=== PATIENT | male | born 1955 | race Caucasian/White ===

== ENCOUNTER 2023-06-18 05:20 | Inpatient (IN) | payer MEDICARE, BC ==
[2023-06-12 15:50] LABS: BILIRUBIN,URINE NEGATIVE (Neg); CLARITY,URINE CLEAR (Clear); COLOR,URINE YELLOW (Yellow); GLUCOSE, URINE NEGATIVE (Neg); KETONES,URINE NEGATIVE (Neg); LEUKOCYTE ESTERASE ,URINE NEGATIVE (Neg); NITRITES, URINE NEGATIVE (Neg); OCCULT BLOOD,URINE NEGATIVE (Neg); PROTEIN,URINE NEGATIVE (Neg); UROBILINOGEN,URINE 0.2 E.U/dL (0.2-1.0)
[2023-06-12 15:51] LABS: UA COLLECTION TYPE CLN CATCH MIDSTREAM
[2023-06-12 15:54] LABS: EOSINOPHILS # (AUTO) 0.1 X10'3 (0-0.9); LYMPHOCYTES # (AUTO) 0.1 X10'3 (1.1-4.8); NEUTROPHILS # (AUTO) 2.9 X10'3 (1.8-7.7); PRE OP HEMATOCRIT 26.3 % (42.0-52.0)
[2023-06-12 15:55] LABS: BASOPHILS % (AUTO) 0.4 % (0-1); EOSINOPHILS % (AUTO) 2.8 % (0-6); LYMPHOCYTES % (AUTO) 3.4 % (21-51); MEAN CORPUSCULAR HEMOGLOBIN 32.7 PG (27.0-31.0); MEAN CORPUSCULAR HGB CONC 29.5 g/dL (33.0-36.5); MEAN CORPUSCULAR VOLUME 110.7 FL (78-98); MEAN PLATELET VOLUME 8.5 FL (7.4-10.4); MONOCYTES # (AUTO) 0.3 X10'3 (0-0.9); MONOCYTES % (AUTO) 9.4 % (2-12); PRE OP PLATELET COUNT 188 X10'3 (140-440); PRE OP WHITE BLOOD COUNT 3.4 10'3 (4.8-10.8); RED BLOOD COUNT 2.38 X10'6 (4.70-6.10); RED CELL DISTRIBUTION WIDTH 16.5 % (11.5-14.5)
[2023-06-12 15:57] LABS: PRE OP PROTIME 10.3 SECONDS (9.0-12.0)
[2023-06-12 15:58] LABS: PRE OP HEMOGLOBIN 7.8 g/dL (14.0-17.9)
[2023-06-12 16:00] LABS: ALBUMIN 2.6 G/DL (3.4-5.0); ALBUMIN/GLOBULIN RATIO 1.2 (1.1-1.5); ALKALINE PHOSPHATASE 54 IU/L (46-116); BLOOD UREA NITROGEN 11 MG/DL (7-18); BUN/CREATININE RATIO 8.4 (10.0-20.0); CHLORIDE 112 MMOL/L (99-107); CREATININE 1.31 MG/DL (0.60-1.10); PRE OP ALT 26 U/L (30-65); PRE OP ANION GAP 6 (8-16); PRE OP AST 21 U/L (10-37); PRE OP BILIRUB, TOTAL 0.3 MG/DL (0.0-1.0); PRE OP GLUCOSE 94 MG/DL (70-104); PRE OP SODIUM 141 MMOL/L (135-145); TOTAL CARBON DIOXIDE 23.4 MMOL/L (24-32); TOTAL PROTEIN 4.7 G/DL (6.4-8.2); eGFR 54 ML/MIN
[2023-06-12 16:23] LABS: HYPOCHROMASIA 1+; PLATELET ESTIMATE NORMAL; POLYCHROMASIA 1+
[2023-06-12 16:24] LABS: ANISOCYTOSIS 1+
[2023-06-12 16:25] LABS: SCHISTOCYTES FEW
[2023-06-12 16:26] LABS: TEAR DROP CELLS 2+
[~2023-06-18] VITALS: Ht 177.8 cm; Wt 73.8 kg
[2023-06-18] VITALS (17 sets, daily range): BP systolic 134–168; BP diastolic 70–84; PULSE 56–71; RESP 10–18; TEMP 97.2–97.8; O2SAT 95–100
[~2023-06-18 05:20] MED LIST: ALFU10TA10 PO; ALLO300T2 PO; CYAN50007 PO; EZET10TA6 PO; FERR-116 PO; FINA5TAB11 PO; FOLI1TAB27 PO; LISI10TA27 PO; NAPR220T67 PO; POTA10TA21 PO; TADA10TA14 PO; ringers solution, lacted 1,000 ML IV SCH
[2023-06-18] MEDS ORDERED: vancomycin 1,500 MG in NS 300ml IV soln IV ONE (05:30)
[2023-06-18] MEDS ORDERED: ondansetron/PF 4mg/2ml inj IV PRN ×3 (05:30→08:50)
[2023-06-18] MEDS ORDERED: nitroPRUSSIDE (NIPRIDE) (200MCG/ML) 100ML Drip IV SCH (05:30)
[2023-06-18] MEDS ORDERED: cefazolin 2gm/D5W 100mL 100 ML IV ONE (05:30)
[2023-06-18] MEDS ORDERED: famotidine 20mg tablet PO ONE (05:30)
[2023-06-18] MEDS ORDERED: phenylephrine inj 50 MG in normal saline 250ml IV solN IV SCH (05:30)
[2023-06-18] MEDS ORDERED: LIDOcaine 1%/PF 5ML 10 MG/ML VIAL ONE (06:50)
[2023-06-18 06:58] LABS: BASOPHILS % (AUTO) 1.1 % (0-1); EOSINOPHILS # (AUTO) 0.1 X10'3 (0-0.9); EOSINOPHILS % (AUTO) 3.8 % (0-6); LYMPHOCYTES # (AUTO) 0.1 X10'3 (1.1-4.8); LYMPHOCYTES % (AUTO) 5.8 % (21-51); MEAN CORPUSCULAR HEMOGLOBIN 33.1 PG (27.0-31.0); MEAN CORPUSCULAR HGB CONC 30.5 g/dL (33.0-36.5); MEAN CORPUSCULAR VOLUME 108.3 FL (78-98); MEAN PLATELET VOLUME 7.7 FL (7.4-10.4); MONOCYTES # (AUTO) 0.2 X10'3 (0-0.9); MONOCYTES % (AUTO) 11.6 % (2-12); NEUTROPHILS # (AUTO) 1.3 X10'3 (1.8-7.7); NEUTROPHILS % (AUTO) 77.7 % (42-75); PRE OP HEMATOCRIT 28.5 % (42.0-52.0); PRE OP PLATELET COUNT 157 X10'3 (140-440); RED BLOOD COUNT 2.63 X10'6 (4.70-6.10); RED CELL DISTRIBUTION WIDTH 16.8 % (11.5-14.5)
[2023-06-18 07:09] LABS: PRE OP WHITE BLOOD COUNT 1.7 10'3 (4.8-10.8)
[2023-06-18 07:10] LABS: PRE OP HEMOGLOBIN 8.7 g/dL (14.0-17.9)
[2023-06-18] MEDS ORDERED: proCHLORperazine 10 MG/2 ml inj IV PRN ×2 (07:25→08:50)
[2023-06-18] MEDS ORDERED: ringers solution, lacted 1,000 ML IV SCH (07:25)
[2023-06-18] MEDS ORDERED: meperidine/PF 25mg/ml syringe IV PRN ×3 (07:25)
[2023-06-18] MEDS ORDERED: iohexol 350 MG/ML 50ML vial IV ONE (07:28)
[2023-06-18] MEDS ORDERED: sevoflurane 250ml liquid IH ONE (07:42)
[2023-06-18] MEDS ORDERED: dexamethasone sod phosphate 4mg/ml inj. ONE (07:42)
[2023-06-18] MEDS ORDERED: LIDOcaine 2% (20mg/ml) 5ml vial ONE (07:48)
[2023-06-18] MEDS ORDERED: fentaNYL/PF 50MCG/1 ML 2ML syringe ONE (07:48)
[2023-06-18] MEDS ORDERED: midazolam 1 mg/ML 2ml injection ONE (07:48)
[2023-06-18] MEDS ORDERED: propofol inj 20 ML IV ONE (07:48)
[2023-06-18 07:54] LABS: ANISOCYTOSIS 1+; PLATELET ESTIMATE NORMAL; TOTAL CELLS COUNTED 100
[2023-06-18 07:55] LABS: HYPOCHROMASIA 1+; TEAR DROP CELLS 2+
[2023-06-18] MEDS ORDERED: allopurinol 300 MG tablet PO SCH ×2 (08:00→21:00)
[2023-06-18] MEDS ORDERED: lisinopril 10 MG tablet PO SCH ×2 (08:00→21:00)
[2023-06-18] MEDS: folic acid 1mg tablet PO SCH ×2 (08:00→20:00)
[2023-06-18] MEDS ORDERED: POTASSIUM CITRATE PO SCH (08:00)
[2023-06-18] MEDS ORDERED: CYANOCOBALAMIN PO SCH (08:00)
[2023-06-18] MEDS ORDERED: tamsulosin 0.4mg capsule PO SCH ×2 (08:00→21:00)
[2023-06-18] MEDS ORDERED: finasteride 5mg tablet PO SCH (08:00)
[2023-06-18] MEDS ORDERED: ezetimibe 10mg tablet PO SCH ×2 (08:00→21:00)
[2023-06-18] MEDS: ferrous sulfate 325mg tablet PO SCH ×2 (08:00→20:00)
[2023-06-18] MEDS ORDERED: protamine sulfate 10mg/ml inj. ONE (08:22)
[2023-06-18] MEDS ORDERED: ondansetron/PF 4mg/2ml inj ONE (08:47)
[2023-06-18] MEDS ORDERED: rocuronium 10mg/ml inj IV ONE (08:47)
[2023-06-18] MEDS ORDERED: neostigmine methylsulfate 1 MG/ML 10ml vial ONE (08:47)
[2023-06-18] MEDS ORDERED: glycopyrrolate 0.2mg/ml inj ONE (08:47)
[2023-06-18] MEDS ORDERED: docusate sod 100mg capsule PO PRN (08:50)
[2023-06-18] MEDS ORDERED: magnesium 2GM in 50ml NS 50 ML IV PRN (08:50)
[2023-06-18] MEDS ORDERED: acetaminophen 325mg tablet PO PRN (08:50)
[2023-06-18] MEDS ORDERED: potassium Cl 40MEQ/1/2NS 520ml 520 ML IV PRN (08:50)
[2023-06-18] MEDS ORDERED: ALPRAZolam 0.25mg tablet PO PRN (08:50)
[2023-06-18] MEDS ORDERED: labetalol 20mg/4ml (5mg/ml) syringe IV PRN (08:50)
[2023-06-18] MEDS ORDERED: hydrALAZINE 20mg/ml inj. IV PRN (08:50)
[2023-06-18] MEDS ORDERED: magnesium 4gm in 100ml NS 100 ML IV PRN (08:50)
[2023-06-18] MEDS ORDERED: diphenhydrAMINE 25mg capsule PO PRN (08:50)
[2023-06-18] MEDS ORDERED: potassium Cl 20mEq/100mL bag 100 ML IV PRN (08:50)
[2023-06-18] MEDS ORDERED: potassium Cl 20 mEq SR tablet PO PRN (08:50)
[2023-06-18] MEDS ORDERED: pantoprazole 40mg Tablet.DR PO PRN (08:50)
[2023-06-18] MEDS ORDERED: potassium Cl 40MEQ/270ML bag 270 ML IV PRN (08:50)
[2023-06-18] MEDS ORDERED: potassium CL 10mEq/100ml bag 100 ML IV PRN (08:50)
[2023-06-18] MEDS: normal saline 1000ml 1,000 ML IV SCH ×2 (08:50→18:50)
--- NOTE | 2023-06-18 08:58 | NUR ---
Received from OR via HOSPITAL BED TO RR 7, accompanied by Anesthesiologist DR RUIZ and report given by Anesthesiolgist. PT PRESETNS WITH PIV 20G RIGHT AC, ART LINE RIGHT WRIST, LR RUNNING AT 100MLS/HR, RIGHT GROIN SOFT NON TENDER WITH CLOSURE DEVICE TO BE REOVED WITHIN 1 HOUR PER CART PUSHER. EKG AT BEDSIDE. SPO2 100% 6L MASK, BILATERAL DORALIS PEDUS DOPPLERED, NEURO CHECK INTACT, VSS. Addendum: 06/18/23 at 0918 by Jade Vitale RN, RN Amended: Links added.
[2023-06-18] MEDS ORDERED: ipratropium/albuterol 3ml nebule NEB PRN (09:10)
--- NOTE | 2023-06-18 10:19 | NUR ---
DRESSING AND STOP COCK REMOVED FRO PT RIGHT GROIN, THERE I NO BLEEDING OR DRAINAGE AT THIS TIME. NEW 4X4 AND TEGADERM REPLACED. Addendum: 06/18/23 at 1021 by Jade Vitale RN RN Amended: Links added.
--- NOTE | 2023-06-18 10:20 | NUR ---
ART LINE REMOVED FRO PT RIGHT WRIST. PT TOLERATED WELL, 4X4 PLACED WITH COBAN DRESSING CDI. Addendum: 06/18/23 at 1021 by Jade Vitale RN, RN Amended: Links added.
--- NOTE | 2023-06-18 10:48 | NUR ---
Report called to receiving nurse TO OLIVEROS. Transferred via HOSPITAL BED TO ROOM 3028B ON MONITOR. BED IN LOW LOCKED POSTION WITH CALL LIGHT IN REACH, PT HOOKED UP TO PORTABLE TELE MONITOR. Belongings TAKEN TO ROOM WITH PT, 2 PT BAGS. PT FAMILY NOTIFED OF PT GOING TO ROOM 328B. CHART TAKEN TO NURSES STATION. Special Issues communicated to receiving nurse. Addendum: 06/18/23 at 1100 by Jade Vitale RN, RN Amended: Links added.
--- NOTE | 2023-06-18 11:09 | NUR ---
pt transferred from recovery room to room 3028A. report recieved from john rn imaging. pt vss and pt is awake and coversing ox4 all peripheral pulsed good with lower extremity pulsed by dopplar. will continue to closely monitor. no s/s of any complications at surgery site in the right groin. no oozing, no hematoma noted at this time
[2023-06-18] MEDS: sod chloride 0.9% 10ml flush syringe IV SCH (16:00)
--- NOTE | 2023-06-18 19:00 | NUR ---
Patient in room PCU 3028. I have received report from Sharda OLIVEROS and had the opportunity to ask questions and assume patient care.
[2023-06-18] MEDS: finasteride 5mg tablet PO SCH (21:00)
[2023-06-18] MEDS ORDERED: aspirin 81mg tab.chew PO SCH (21:00)
--- NOTE | 2023-06-18 21:00 | NUR ---
PT REFUSED MEDS BECAUSE BROUGHT THEM IN EARLIER AND HE ALREADY TOOK THEM.
[2023-06-18] MEDS ORDERED: HALLS - SOOTHE MENTHOL 1.8 MG cough drop LOZENGE MM PRN (23:50)
--- NOTE | 2023-06-19 04:15 | NUR ---
I AGREE WITH COLLIN GUO's ASSESSMENT
[2023-06-19] MEDS: normal saline 1000ml 1,000 ML IV SCH (04:50)
--- NOTE | 2023-06-19 06:05 | NUR ---
Problems reprioritized. Patient report given, questions answered & plan of care reviewed with Sharda RN.
[2023-06-19 06:30] VITALS: BP 119/65; PULSE 53; RESP 15; TEMP 98.6; O2SAT 99
[2023-06-19 06:37] LABS: EOSINOPHILS % (AUTO) 0 % (0-6); RED BLOOD COUNT 2.72 X10'6 (4.70-6.10)
[2023-06-19 06:39] LABS: BASOPHILS % (AUTO) 0.5 % (0-1); HEMATOCRIT 29.4 % (42.0-52.0); LYMPHOCYTES # (AUTO) 0.2 X10'3 (1.1-4.8); LYMPHOCYTES % (AUTO) 6.5 % (21-51); MEAN CORPUSCULAR HEMOGLOBIN 33.2 PG (27.0-31.0); MEAN CORPUSCULAR HGB CONC 30.7 g/dL (33.0-36.5); MEAN PLATELET VOLUME 9.1 FL (7.4-10.4); MONOCYTES # (AUTO) 0.3 X10'3 (0-0.9); MONOCYTES % (AUTO) 8.3 % (2-12); NEUTROPHILS # (AUTO) 3.2 X10'3 (1.8-7.7); NEUTROPHILS % (AUTO) 84.7 % (42-75); PLATELET COUNT 186 X10'3 (140-440); RED CELL DISTRIBUTION WIDTH 16.6 % (11.5-14.5); WHITE BLOOD COUNT 3.8 X10'3 (4.5-11.0)
[2023-06-19 06:47] LABS: PROTHROMBIN TIME 10.3 SECONDS (9.0-12.0)
[2023-06-19 07:04] LABS: ALANINE AMINOTRANSFERASE 49 U/L (12-78); ALBUMIN 2.5 G/DL (3.4-5.0); ALKALINE PHOSPHATASE 65 IU/L (46-116); ANION GAP 5 (8-16); ASPARTATE AMINO TRANSFERASE 23 U/L (10-37); BILIRUBIN,TOTAL 0.2 MG/DL (0.1-1.0); BLOOD UREA NITROGEN 15 MG/DL (7-18); BUN/CREATININE RATIO 11.7 (10.0-20.0); CALCIUM 8.4 MG/DL (8.5-10.1); CHLORIDE 111 MMOL/L (99-107); CREATININE 1.28 MG/DL (0.60-1.10); GLUCOSE 113 MG/DL (70-104); MAGNESIUM 2.2 MG/DL (1.5-2.4); POTASSIUM 3.9 MMOL/L (3.5-5.1); PRO BRAIN NATRIURETIC PEPTIDE 2751 PG/ML (0-125); SODIUM 142 MMOL/L (135-145); TOTAL CARBON DIOXIDE 25.7 MMOL/L (24-32); TOTAL PROTEIN 4.9 G/DL (6.4-8.2); eCRCL 55 ML/MIN; eGFR 56 ML/MIN
[2023-06-19] MEDS ORDERED: clopidogrel 75mg tablet PO SCH (08:00)
[2023-06-19] MEDS ORDERED: aspirin 81mg tab.chew PO SCH (08:30)
[2023-06-19] MEDS: ferrous sulfate 325mg tablet PO SCH (08:37)
[2023-06-19] MEDS: sod chloride 0.9% 10ml flush syringe IV SCH ×2 (08:37)
[2023-06-19] MEDS: folic acid 1mg tablet PO SCH (08:37)
[2023-06-19] MEDS: finasteride 5mg tablet PO SCH (08:37)
[2023-06-19 10:30] VITALS: BP 111/58; PULSE 65; RESP 12; TEMP 98; O2SAT 98
[2023-06-19] MEDS ORDERED: CLOP-32 PO ×2 (12:25)
[2023-06-19] MEDS ORDERED: ASPI-1071 PO ×2 (12:25)
--- NOTE | 2023-06-19 14:50 | NUR ---
pt discharged to home all dc instructions explained to patient with patient verbazlizing understanding regarding plan of care. procedural site intact with no s/s of hematoma or bleeding. pain is controlled pt up ambulating with no problems. pt left via walking on foot, vss a/ox3. pt has an appt with dr wilcox for follow up
== END 2023-06-19 15:00 | disposition home or self-care (01) | DRG 274 ==
LOC: PAS IN 05:20 → PCU 3S 10:51
PROVIDERS: ADMIT Student in an Organized Health Care Education/Training Program; ATTEND Student in an Organized Health Care Education/Training Program
PROC: B24BZZ4 Ultrasonography of Heart with Aorta, Transesophageal (ICD-10-PCS; 2023-06-18)
PROC: 03HY32Z Insertion of Monitoring Device into Upper Artery, Percutaneous Approach (ICD-10-PCS; 2023-06-18)
PROC: 02L73DK Occlusion of Left Atrial Appendage with Intraluminal Device, Percutaneous Approach (ICD-10-PCS; principal; 2023-06-18 07:42)
DX: I48.91 Unspecified atrial fibrillation (principal); Z00.6 Encounter for examination for normal comparison and control in clinical research program; K92.2 Gastrointestinal hemorrhage, unspecified; E78.5 Hyperlipidemia, unspecified; D53.9 Nutritional anemia, unspecified; Z88.8 Allergy status to other drugs, medicaments and biological substances; I25.2 Old myocardial infarction
CPT/HCPCS: 33340; 36415; 71045; 71046; 76937; 80053; 81003; 82948; 83735; 83880; 85007; 85008; 85025; 85347; 85610; 85730; 86885; 86900; 86901; 86920; 87081; 93005; 93308; 93312; 93325; A4618; A6258; A6449; C1760; C1889; C1893; C1894; G0378; J0690; J1100; J1644; J2250; J2370; J2405; J2704; J2710; J2720; J3010; J3370; J3490; J7030; J7040; J7050; J7120; Q9967

== ENCOUNTER 2023-06-27 08:22 | Inpatient (IN) | payer MEDICARE, BC ==
[~2023-06-27] VITALS: Ht 175.3 cm; Wt 72.7 kg
[~2023-06-27 08:22] MED LIST changes: +ASPI-1071 PO; +CLOP-32 PO; -NAPR220T67 PO; -ringers solution, lacted 1,000 ML IV SCH
[2023-06-27] MEDS ORDERED: pantoprazole 40mg IV 80 MG in normal saline 100ml IV soln 100 ML IV ONE (09:40)
[2023-06-27 10:14] LABS: BASOPHILS % (AUTO) 0.5 % (0-1); EOSINOPHILS % (AUTO) 0.9 % (0-6); LYMPHOCYTES # (AUTO) 0.2 X10'3 (1.1-4.8); LYMPHOCYTES % (AUTO) 4.9 % (21-51); MEAN CORPUSCULAR HEMOGLOBIN 32.7 PG (27.0-31.0); MEAN CORPUSCULAR HGB CONC 30.1 g/dL (33.0-36.5); MEAN CORPUSCULAR VOLUME 108.6 FL (78-98); MEAN PLATELET VOLUME 8.6 FL (7.4-10.4); MONOCYTES # (AUTO) 0.3 X10'3 (0-0.9); MONOCYTES % (AUTO) 6.4 % (2-12); NEUTROPHILS # (AUTO) 3.4 X10'3 (1.8-7.7); NEUTROPHILS % (AUTO) 87.3 % (42-75); PLATELET COUNT 214 X10'3 (140-440); RED BLOOD COUNT 1.93 X10'6 (4.70-6.10); WHITE BLOOD COUNT 3.9 X10'3 (4.5-11.0)
[2023-06-27 10:19] LABS: HEMATOCRIT 20.9 % (42.0-52.0); HEMOGLOBIN 6.3 g/dl (14.0-17.9)
[2023-06-27 10:21] LABS: APTT 22 SECONDS (22-32)
[2023-06-27 10:23] LABS: ALANINE AMINOTRANSFERASE 24 U/L (12-78); ALBUMIN 2.2 G/DL (3.4-5.0); ALBUMIN/GLOBULIN RATIO 1.2 (1.1-1.5); ALKALINE PHOSPHATASE 51 IU/L (46-116); ANION GAP 3 (8-16); ASPARTATE AMINO TRANSFERASE 22 U/L (10-37); BILIRUBIN,TOTAL 0.3 MG/DL (0.1-1.0); BLOOD UREA NITROGEN 15 MG/DL (7-18); BUN/CREATININE RATIO 12.7 (10.0-20.0); CALCIUM 7.6 MG/DL (8.5-10.1); CHLORIDE 114 MMOL/L (99-107); CREATININE 1.18 MG/DL (0.60-1.10); GLUCOSE 123 MG/DL (70-104); POTASSIUM 4.2 MMOL/L (3.5-5.1); SODIUM 142 MMOL/L (135-145); TOTAL CARBON DIOXIDE 25.3 MMOL/L (24-32); eCRCL 58 ML/MIN; eGFR 61 ML/MIN
[2023-06-27] MEDS: pantoprazole 40MG/NS 100ML BAG 100 ML IV SCH ×3 (11:18→21:00)
[2023-06-27] MEDS ORDERED: potassium Cl 40MEQ/1/2NS 520ml 520 ML IV PRN (11:45)
[2023-06-27] MEDS ORDERED: magnesium 4gm in 100ml NS 100 ML IV PRN (11:45)
[2023-06-27] MEDS ORDERED: magnesium 2GM in 50ml NS 50 ML IV PRN (11:45)
[2023-06-27] MEDS ORDERED: magnesium hydroxide 30ml (MOM) UD suspension PO PRN (11:45)
[2023-06-27] MEDS ORDERED: potassium Cl 20 mEq SR tablet PO PRN ×2 (11:45)
[2023-06-27] MEDS ORDERED: mag hydrox/Alum hydrox/simeth 30ml oral suspension PO PRN (11:45)
[2023-06-27] MEDS ORDERED: ondansetron/PF 4mg/2ml inj IV PRN (11:45)
[2023-06-27] MEDS ORDERED: magnesium Cl slow-release 64mg tablet PO PRN (11:45)
[2023-06-27] MEDS ORDERED: magnesium citrate 296ml oral solution PO ONE (12:15)
[2023-06-27] MEDS: normal saline 1000ml 1,000 ML IV SCH (12:30)
--- NOTE | 2023-06-27 13:39 | NUR ---
PT RECEIVING BLOOD, RESING QUIETLY IN NAD.
[2023-06-27 14:44] VITALS: BP 132/63; PULSE 77; RESP 16; TEMP 97.8
[2023-06-27 14:59] VITALS: BP 140/76; PULSE 76; RESP 16; TEMP 98.2
[2023-06-27 15:30] VITALS: BP 145/79; PULSE 69; RESP 16; TEMP 98.1
[2023-06-27 16:20] VITALS: BP 150/88; PULSE 66; RESP 16; TEMP 98
--- NOTE | 2023-06-27 16:25 | NUR ---
PT RECEIVED 2 UNITS PRBS AND REPORTS FEELING MUCH BETTER
--- NOTE | 2023-06-27 18:08 | NUR ---
PT RESTING COMFORTABLY IN BED TALKING ON PHONE. PT REPORTS SOME BRIGHT RED BLOOD WITH HIS LAST BM 45 MINS AGO
[2023-06-27] MEDS ORDERED: CLOP75TA34 PO (19:26)
[2023-06-27] MEDS ORDERED: EZET10TA48 PO (19:26)
[2023-06-27] MEDS ORDERED: LATA2.5D14 RIGHTEYE (19:26)
[2023-06-27] MEDS ORDERED: AMI200T PO (19:26)
[2023-06-27] MEDS ORDERED: TIMO5DRO15 EACHEYE (19:26)
[2023-06-27] MEDS ORDERED: ASPI-1144 PO (19:26)
[2023-06-27] MEDS ORDERED: DORZ10DR26 EACHEYE (19:26)
[2023-06-27] MEDS: K and/or MAG REPLACEMENT MC SCH (20:00)
--- NOTE | 2023-06-27 20:29 | NUR ---
PT DOES NOT WANT TO TAKE MAG CITRATE YET FOR BOWEL PREP AND WANTS TO WAIT UNTIL 10PM.
[2023-06-27 21:11] LABS: BASOPHILS % (AUTO) 1.1 % (0-1); EOSINOPHILS # (AUTO) 0.1 X10'3 (0-0.9); EOSINOPHILS % (AUTO) 3.4 % (0-6); HEMATOCRIT 24.6 % (42.0-52.0); HEMOGLOBIN 7.9 g/dl (14.0-17.9); LYMPHOCYTES # (AUTO) 0.2 X10'3 (1.1-4.8); LYMPHOCYTES % (AUTO) 5.6 % (21-51); MEAN CORPUSCULAR HEMOGLOBIN 32.7 PG (27.0-31.0); MEAN CORPUSCULAR HGB CONC 32.3 g/dL (33.0-36.5); MEAN CORPUSCULAR VOLUME 101.3 FL (78-98); MEAN PLATELET VOLUME 8.4 FL (7.4-10.4); MONOCYTES # (AUTO) 0.4 X10'3 (0-0.9); MONOCYTES % (AUTO) 9.7 % (2-12); NEUTROPHILS % (AUTO) 80.2 % (42-75); PLATELET COUNT 201 X10'3 (140-440); RED BLOOD COUNT 2.43 X10'6 (4.70-6.10); RED CELL DISTRIBUTION WIDTH 20.3 % (11.5-14.5); WHITE BLOOD COUNT 3.7 X10'3 (4.5-11.0)
[2023-06-27 22:00] VITALS: BP 153/80; PULSE 81; RESP 16; TEMP 98.3; O2SAT 97
--- NOTE | 2023-06-27 22:00 | NUR ---
Patient in room ORTHO 4009. I have received report from DOMO DIAZ and had the opportunity to ask questions and assume patient care.
[2023-06-28] VITALS (15 sets, daily range): BP systolic 114–166; BP diastolic 60–115; PULSE 59–78; RESP 12–18; TEMP 97.6–98.8; O2SAT 95–100
[2023-06-28] MEDS: pantoprazole 40MG/NS 100ML BAG 100 ML IV SCH ×5 (01:31→20:33)
--- NOTE | 2023-06-28 05:50 | NUR ---
I agree with COMPOSITION INSTRUCTOR physical assessment.
--- NOTE | 2023-06-28 06:26 | NUR ---
Problems reprioritized. Patient report given, questions answered & plan of care reviewed with Megan. Arias
--- NOTE | 2023-06-28 06:30 | NUR ---
Patient in room ORTHO 4009. I have received report from Marcos and had the opportunity to ask questions and assume patient care.
[2023-06-28 06:59] LABS: PROTHROMBIN TIME 10.8 SECONDS (9.0-12.0)
[2023-06-28] MEDS: K and/or MAG REPLACEMENT MC SCH ×2 (07:12→20:00)
[2023-06-28 07:14] LABS: ALANINE AMINOTRANSFERASE 20 U/L (12-78); ALBUMIN 2.2 G/DL (3.4-5.0); ALBUMIN/GLOBULIN RATIO 1.2 (1.1-1.5); ALKALINE PHOSPHATASE 48 IU/L (46-116); ANION GAP 6 (8-16); ASPARTATE AMINO TRANSFERASE 13 U/L (10-37); BILIRUBIN,TOTAL 0.4 MG/DL (0.1-1.0); BLOOD UREA NITROGEN 12 MG/DL (7-18); BUN/CREATININE RATIO 10.2 (10.0-20.0); CALCIUM 7.7 MG/DL (8.5-10.1); CHLORIDE 114 MMOL/L (99-107); CREATININE 1.18 MG/DL (0.60-1.10); GLUCOSE 93 MG/DL (70-104); MAGNESIUM 2.4 MG/DL (1.5-2.4); PHOSPHORUS 3.2 MG/DL (2.3-4.5); POTASSIUM 3.6 MMOL/L (3.5-5.1); SODIUM 144 MMOL/L (135-145); TOTAL CARBON DIOXIDE 24.2 MMOL/L (24-32); TOTAL PROTEIN 4.1 G/DL (6.4-8.2); eCRCL 58 ML/MIN; eGFR 61 ML/MIN
[2023-06-28 07:29] LABS: BASOPHILS % (AUTO) 0.4 % (0-1); EOSINOPHILS # (AUTO) 0.1 X10'3 (0-0.9); EOSINOPHILS % (AUTO) 1.8 % (0-6); HEMATOCRIT 23.9 % (42.0-52.0); HEMOGLOBIN 7.7 g/dl (14.0-17.9); LYMPHOCYTES # (AUTO) 0.2 X10'3 (1.1-4.8); LYMPHOCYTES % (AUTO) 4.5 % (21-51); MEAN CORPUSCULAR HEMOGLOBIN 32.7 PG (27.0-31.0); MEAN CORPUSCULAR HGB CONC 32.4 g/dL (33.0-36.5); MEAN CORPUSCULAR VOLUME 101.1 FL (78-98); MEAN PLATELET VOLUME 8.5 FL (7.4-10.4); MONOCYTES # (AUTO) 0.3 X10'3 (0-0.9); MONOCYTES % (AUTO) 7.4 % (2-12); NEUTROPHILS # (AUTO) 3.9 X10'3 (1.8-7.7); NEUTROPHILS % (AUTO) 85.9 % (42-75); PLATELET COUNT 203 X10'3 (140-440); RED BLOOD COUNT 2.36 X10'6 (4.70-6.10); RED CELL DISTRIBUTION WIDTH 20.2 % (11.5-14.5); WHITE BLOOD COUNT 4.5 X10'3 (4.5-11.0)
[2023-06-28 10:02] LABS: PLATELET ESTIMATE NORMAL; POLYCHROMASIA FEW
[2023-06-28 10:03] LABS: ANISOCYTOSIS 3+; ELLIPTOCYTES FEW; STOMATOCYTES FEW; TEAR DROP CELLS 1+
[2023-06-28] MEDS ORDERED: fentaNYL/PF 50MCG/1 ML 2ML syringe ONE (10:20)
[2023-06-28] MEDS ORDERED: diphenhydrAMINE 50 mg/ml inj ONE (10:21)
[2023-06-28] MEDS ORDERED: MIDAZolam 1 MG/ML 5ML VIAL ONE (10:21)
[2023-06-28] MEDS ORDERED: clopidogrel 75mg tablet PO ONE (14:50)
--- NOTE | 2023-06-28 16:06 | NUR ---
Student charting reviewed by the instructor
--- NOTE | 2023-06-28 18:30 | NUR ---
Patient in room ORTHO 4009. I have received report from DOMO Mack and had the opportunity to ask questions and assume patient care.
--- NOTE | 2023-06-28 18:31 | NUR ---
Problems reprioritized. Patient report given, questions answered & plan of care reviewed with Jeri Zuniga
[2023-06-28] MEDS: folic acid 1mg tablet PO SCH (20:32)
[2023-06-28] MEDS: cyanocobalamin 500mcg tablet PO SCH (20:32)
[2023-06-28] MEDS: metroNIDAZOLE-Flagyl 500mg/NS 100 ML IV SCH (20:33)
[2023-06-28] MEDS: ciprofloxacin lact 400MG/200ML 200 ML IV SCH (20:33)
[2023-06-28] MEDS: dorzolamide 2% ophthalmic drops 10ml EACHEYE SCH (20:38)
[2023-06-28] MEDS ORDERED: diatr meglu/diatrizoate 30ml oral sol.-(3 dose) bottle PO SCH (21:00)
[2023-06-28] MEDS ORDERED: latanoprost 0.005% 2.5ml ophthalmic drops RIGHTEYE SCH (21:00)
[2023-06-28] MEDS ORDERED: finasteride 5mg tablet PO SCH (21:02)
[2023-06-28] MEDS ORDERED: tamsulosin 0.4mg capsule PO SCH (21:03)
[2023-06-28] MEDS ORDERED: clopidogrel 75mg tablet PO SCH (21:03)
[2023-06-28] MEDS ORDERED: allopurinol 300 MG tablet PO SCH (21:03)
[2023-06-28] MEDS ORDERED: lisinopril 10 MG tablet PO SCH (21:03)
[2023-06-28] MEDS ORDERED: aspirin 81mg tab.chew PO SCH (21:04)
[2023-06-28] MEDS ORDERED: ezetimibe 10mg tablet PO SCH (21:04)
[2023-06-28] MEDS ORDERED: predniSONE 20 mg tablet PO SCH (21:05)
[2023-06-29 02:00] VITALS: BP 173/74; PULSE 64; RESP 16; TEMP 98.1; O2SAT 95
[2023-06-29 06:00] VITALS: BP 139/52; PULSE 75; RESP 16; TEMP 98.6; O2SAT 98
[2023-06-29] MEDS: pantoprazole 40MG/NS 100ML BAG 100 ML IV SCH ×3 (06:00→11:00)
--- NOTE | 2023-06-29 06:25 | NUR ---
Problems reprioritized. Patient report given, questions answered & plan of care reviewed with DOMO Mclean.
[2023-06-29 06:31] LABS: BASOPHILS % (AUTO) 0.4 % (0-1); EOSINOPHILS % (AUTO) 0.2 % (0-6); HEMATOCRIT 26.3 % (42.0-52.0); HEMOGLOBIN 8.3 g/dl (14.0-17.9); LYMPHOCYTES # (AUTO) 0.1 X10'3 (1.1-4.8); LYMPHOCYTES % (AUTO) 3.1 % (21-51); MEAN CORPUSCULAR HEMOGLOBIN 32.6 PG (27.0-31.0); MEAN CORPUSCULAR HGB CONC 31.5 g/dL (33.0-36.5); MEAN CORPUSCULAR VOLUME 103.5 FL (78-98); MEAN PLATELET VOLUME 8.7 FL (7.4-10.4); NEUTROPHILS # (AUTO) 4.1 X10'3 (1.8-7.7); NEUTROPHILS % (AUTO) 95.3 % (42-75); PLATELET COUNT 234 X10'3 (140-440); RED BLOOD COUNT 2.54 X10'6 (4.70-6.10); RED CELL DISTRIBUTION WIDTH 19.9 % (11.5-14.5); WHITE BLOOD COUNT 4.3 X10'3 (4.5-11.0)
--- NOTE | 2023-06-29 06:34 | NUR ---
Patient in room ORTHO 4009. I have received report from DOMO Wilcox and had the opportunity to ask questions and assume patient care.
[2023-06-29 06:37] LABS: PROTHROMBIN TIME 10.7 SECONDS (9.0-12.0)
[2023-06-29 07:13] LABS: ALANINE AMINOTRANSFERASE 24 U/L (12-78); ALBUMIN 2.4 G/DL (3.4-5.0); ALBUMIN/GLOBULIN RATIO 1.1 (1.1-1.5); ALKALINE PHOSPHATASE 52 IU/L (46-116); ANION GAP 6 (8-16); ASPARTATE AMINO TRANSFERASE 17 U/L (10-37); BILIRUBIN,TOTAL 0.3 MG/DL (0.1-1.0); BLOOD UREA NITROGEN 13 MG/DL (7-18); BUN/CREATININE RATIO 9.9 (10.0-20.0); CALCIUM 7.9 MG/DL (8.5-10.1); CHLORIDE 112 MMOL/L (99-107); CREATININE 1.31 MG/DL (0.60-1.10); GLUCOSE 132 MG/DL (70-104); MAGNESIUM 2.3 MG/DL (1.5-2.4); POTASSIUM 4.1 MMOL/L (3.5-5.1); SODIUM 141 MMOL/L (135-145); TOTAL CARBON DIOXIDE 23.1 MMOL/L (24-32); TOTAL PROTEIN 4.6 G/DL (6.4-8.2); eCRCL 52 ML/MIN; eGFR 54 ML/MIN
[2023-06-29] MEDS: ciprofloxacin lact 400MG/200ML 200 ML IV SCH (07:47)
[2023-06-29] MEDS: folic acid 1mg tablet PO SCH (07:49)
[2023-06-29] MEDS: cyanocobalamin 500mcg tablet PO SCH (07:49)
[2023-06-29] MEDS: dorzolamide 2% ophthalmic drops 10ml EACHEYE SCH (07:50)
[2023-06-29] MEDS: K and/or MAG REPLACEMENT MC SCH (08:00)
[2023-06-29 10:00] VITALS: BP 120/68; PULSE 66; RESP 15; TEMP 98.7; O2SAT 97
[2023-06-29] MEDS: metroNIDAZOLE-Flagyl 500mg/NS 100 ML IV SCH (10:05)
[2023-06-29] MEDS: normal saline 1000ml 1,000 ML IV SCH (11:45)
[2023-06-29] MEDS ORDERED: CIPR-259 PO (12:44)
[2023-06-29] MEDS ORDERED: PRED10TA23 PO (12:44)
[2023-06-29] MEDS ORDERED: METR-159 PO (12:44)
[2023-06-29] MEDS ORDERED: PANT40TA54 PO (13:06)
--- NOTE | 2023-06-29 15:20 | NUR ---
Pt given discharge packet and was able to ask questions about discharge. Pt was wheelchaired to the lobby with all of his belongings and in no distress. Pt left in a private vehicle with his .
== END 2023-06-29 15:19 | disposition home or self-care (01) | DRG 393 ==
LOC: ER 08:22 → ED HOLD 11:46 → ORTHO 4S 22:00
PROVIDERS: ADMIT Family Medicine; ATTEND Family Medicine
PROC: 30233N1 Transfusion of Nonautologous Red Blood Cells into Peripheral Vein, Percutaneous Approach (ICD-10-PCS; principal; 2023-06-27)
PROC: 0DBP8ZX Excision of Rectum, Via Natural or Artificial Opening Endoscopic, Diagnostic (ICD-10-PCS; 2023-06-28)
DX: K91.850 Pouchitis (principal); N17.0 Acute kidney failure with tubular necrosis; K51.211 Ulcerative (chronic) proctitis with rectal bleeding; K52.9 Noninfective gastroenteritis and colitis, unspecified; I25.10 Atherosclerotic heart disease of native coronary artery without angina pectoris; I48.91 Unspecified atrial fibrillation; E53.8 Deficiency of other specified B group vitamins; I10 Essential (primary) hypertension; D50.9 Iron deficiency anemia, unspecified; Y83.8 Other surgical procedures as the cause of abnormal reaction of the patient, or of later complication, without mention of misadventure at the time of the procedure; Y82.8 Other medical devices associated with adverse incidents; Z95.5 Presence of coronary angioplasty implant and graft; Z90.49 Acquired absence of other specified parts of digestive tract; Z88.5 Allergy status to narcotic agent; Z88.8 Allergy status to other drugs, medicaments and biological substances; Z91.041 Radiographic dye allergy status; Z79.82 Long term (current) use of aspirin; Z79.899 Other long term (current) drug therapy; Z79.01 Long term (current) use of anticoagulants; Y92.89 Other specified places as the place of occurrence of the external cause
CPT/HCPCS: 36415; 36430; 45380; 71045; 80053; 83735; 84100; 85008; 85025; 85610; 85730; 86885; 86900; 86901; 86920; 96365; 97116; 97161; 97530; 99152; 99153; 99285; A4620; C9113; G0378; J0744; J1200; J2250; J2405; J3010; J3490; J7030; J7050; J7512; P9016

== ENCOUNTER 2023-07-27 08:20 | Outpatient (CLI) | payer MEDICARE, BC ==
[~2023-07-27 08:20] MED LIST changes: -ASPI-1071 PO; +ASPI-1144 PO; -CLOP-32 PO; +CLOP75TA34 PO; +DORZ10DR26 EACHEYE; +EZET10TA48 PO; -EZET10TA6 PO; +LATA2.5D14 RIGHTEYE; +PANT40TA54 PO; +PRED10TA23 PO; +TIMO5DRO15 EACHEYE
[2023-07-27 08:57] LABS: BASOPHILS % (AUTO) 0.8 % (0-1); EOSINOPHILS # (AUTO) 0.1 X10'3 (0-0.9); EOSINOPHILS % (AUTO) 2.4 % (0-6); HEMATOCRIT 37.8 % (42.0-52.0); HEMOGLOBIN 12.1 g/dl (14.0-17.9); LYMPHOCYTES # (AUTO) 0.2 X10'3 (1.1-4.8); LYMPHOCYTES % (AUTO) 4.2 % (21-51); MEAN CORPUSCULAR HEMOGLOBIN 33.6 PG (27.0-31.0); MEAN PLATELET VOLUME 7.9 FL (7.4-10.4); MONOCYTES # (AUTO) 0.3 X10'3 (0-0.9); MONOCYTES % (AUTO) 7.5 % (2-12); NEUTROPHILS # (AUTO) 3.9 X10'3 (1.8-7.7); NEUTROPHILS % (AUTO) 85.1 % (42-75); PLATELET COUNT 167 X10'3 (140-440); RED CELL DISTRIBUTION WIDTH 16.5 % (11.5-14.5); WHITE BLOOD COUNT 4.5 X10'3 (4.5-11.0)
[2023-07-27 09:17] LABS: APTT 24 SECONDS (22-32)
[2023-07-27 09:22] LABS: INR 0.9 INR
[2023-07-27 09:25] LABS: ALANINE AMINOTRANSFERASE 29 U/L (12-78); ALBUMIN 2.9 G/DL (3.4-5.0); ALBUMIN/GLOBULIN RATIO 1.3 (1.1-1.5); ALKALINE PHOSPHATASE 57 IU/L (46-116); ANION GAP 8 (8-16); ASPARTATE AMINO TRANSFERASE 19 U/L (10-37); BILIRUBIN,TOTAL 0.3 MG/DL (0.1-1.0); BLOOD UREA NITROGEN 13 MG/DL (7-18); BUN/CREATININE RATIO 11.7 (10.0-20.0); CALCIUM 8.3 MG/DL (8.5-10.1); CHLORIDE 107 MMOL/L (99-107); CREATININE 1.11 MG/DL (0.60-1.10); GLUCOSE 101 MG/DL (70-104); POTASSIUM 4.2 MMOL/L (3.5-5.1); SODIUM 140 MMOL/L (135-145); TOTAL CARBON DIOXIDE 24.8 MMOL/L (24-32); TOTAL PROTEIN 5.2 G/DL (6.4-8.2); eGFR 65 ML/MIN
[2023-07-27] MEDS ORDERED: IODIXANOL 320 MG/ML INFUS..BTL 100ML IV ONE (09:29)
== END 2023-07-27 23:59 | disposition home or self-care (01) ==
LOC: RAD 08:20
PROVIDERS: ATTEND Student in an Organized Health Care Education/Training Program
DX: I25.10 Atherosclerotic heart disease of native coronary artery without angina pectoris (principal); I34.81 Nonrheumatic mitral (valve) annulus calcification; I48.91 Unspecified atrial fibrillation; Z95.818 Presence of other cardiac implants and grafts
CPT/HCPCS: 36415; 75572; 80053; 85025; 85610; 85730; J3490; Q9967